=== PATIENT | female | born 1985 | race Caucasian/White ===

== ENCOUNTER 2019-04-13 08:34 | Day surgery (SDC) | payer MEDICAID ==
[2019-04-06 11:07] LABS: ABSOLUTE EOSINOPHILS # (AUTO) 0.1 10^3/uL (0.0-0.6); ABSOLUTE LYMPHOCYTES (AUTO) 2.2 10^3/uL (0.5-4.7); ABSOLUTE MONOCYTES (AUTO) 0.4 10^3/uL (0.1-1.4); ABSOLUTE NEUT (AUTO) 3.3 10^3/uL (1.7-8.2); BASOPHILS % (AUTO) 0.4 % (0-2); HEMATOCRIT 40.5 % (36.0-47.0); HEMOGLOBIN 13.8 g/dL (12.0-15.5); LYMPHOCYTES % (AUTO) 36.1 % (13-45); MEAN CORPUSCULAR HEMOGLOBIN 30.6 pg (27.0-33.4); MEAN CORPUSCULAR VOLUME 90 fl (80-97); MONOCYTES % (AUTO) 6.8 % (3-13); PLATELET COUNT 232 10^3/uL (150-450); RED CELL DISTRIBUTION WIDTH 14.2 % (11.5-14.0); SEGMENTED NEUTROPHILS % (AUTO) 54.7 % (42-78); TOTAL CELLS COUNTED % (AUTO) 100 %
[2019-04-06 11:52] LABS: ANION GAP 10 (5-19); BLOOD UREA NITROGEN 11 mg/dL (7-20); CARBON DIOXIDE 25 mmol/L (22-30); CHLORIDE 104 mmol/L (98-107); GLUCOSE 123 mg/dL (75-110); POTASSIUM 4.8 mmol/L (3.6-5.0)
[~2019-04-13 08:34] MED LIST: CEFAZOLIN SODIUM 2 GM in DEXTROSE 5%-WATER 100 ML IV PRN; DEXAMETHASONE SOD PHOSPHATE INJ 4 MG/1 ML VIAL ONE; FENTANYL CITRATE INJ/PF 100 MCG/2 ML AMPUL ONE; LACTATED RINGERS 1000 ML IV PRN; LIDOCAINE 0.5% INJ-PF (5 MG/ML) 50 ML SDV SUBCUT PRN; MIDAZOLAM 2 MG/2 ML INJ ONE; ONDANSETRON HCL INJ/PF 4 MG/2 ML SDV ONE; PROPOFOL INJ 200 MG/20 ML VIAL IV ONE
[2019-04-13] MEDS ORDERED: ONDANSETRON HCL INJ/PF 4 MG/2 ML SDV ONE (09:03)
[2019-04-13] MEDS ORDERED: FENTANYL CITRATE INJ/PF 100 MCG/2 ML AMPUL ONE (09:03)
[2019-04-13] MEDS ORDERED: MIDAZOLAM 2 MG/2 ML INJ ONE (09:03)
[2019-04-13] MEDS ORDERED: DEXAMETHASONE SOD PHOSPHATE INJ 4 MG/1 ML VIAL ONE (09:03)
[2019-04-13] MEDS ORDERED: PROPOFOL INJ 200 MG/20 ML VIAL IV ONE ×2 (09:04→13:57)
[2019-04-13] MEDS ORDERED: LIDOCAINE 1% INJ-PF (10 MG/ML) 30 ML SDV ONE (09:35)
[2019-04-13] MEDS ORDERED: DIPHENHYDRAMINE HCL 50 MG/ML VIAL IV PRN (11:31)
[2019-04-13] MEDS ORDERED: MEPERIDINE HCL/PF INJ 25 MG/1 ML DISP.SYRIN IV PRN (11:31)
[2019-04-13] MEDS ORDERED: MORPHINE SULFATE 10 MG/ML INJ IV PRN (11:31)
[2019-04-13] MEDS ORDERED: FENTANYL CITRATE INJ/PF 100 MCG/2 ML AMPUL IV PRN ×3 (11:31)
[2019-04-13] MEDS ORDERED: PROMETHAZINE HCL INJ 25 MG/1 ML VIAL IV PRN (11:31)
[2019-04-13] MEDS: BUPIVACAINE HCL 0.5 % INJ/PF 30 ML SDV ONE ×3 (11:37→12:45)
[2019-04-13] MEDS ORDERED: OXYCODONE-ACETAMINOPHEN 5-325 MG TABLET PO PRN (13:12)
--- NOTE | 2019-04-13 13:21 | Discharge Summary ---
Discharge Summary (SDC) - Discharge Final Diagnosis: Right ring finger malunion Date of Surgery: 04/13/19 Discharge Date: 04/13/19 Condition: Good Treatment or Instructions: Schedule Follow Up w/ Dr. Caleb Villegas @ [facility] to be seen in 10-14 days or as scheduled [place]: [place]: [place]: Ice and elevate Keep splint clean/dry/intact, do not remove. If your fingers become numb please unwrap the Dylon wrap but leave the splint in place, if the sensation does not return within 30 minutes please return to the emergency department. May begin finger range of motion attempting to make full fist. Please use ibuprofen (Motrin or Advil) 600-800 mg every 8 hours as needed for pain or fever DO NOT TAKE w/ TORADOL may use once TORADOL complete. You may also use acetaminophen (Tylenol) 1000 mg every 4-6 hours as needed for pain or fever. Please be aware that many medications contain acetaminophen, do not exceed a total of 1000 mg of acetaminophen every 6 hours. If ibuprofen and acetaminophen are not sufficient for your pain you may take the Percocet/[place]. Please be aware that the Percocet/[place] does contain Tylenol. Stool softener of choice when on pain medication. USE OF XLNY-SWP-VZHEOTB IBUPROFEN: Ibuprofen (Advil, Nuprin, Medipren, Motrin IB) is a medication for fever and pain control. In addition, it has anti- inflammatory effects which may be beneficial, especially in the treatment of injuries. It's best to take ibuprofen with food. Persons with ulcer disease or allergy to aspirin should notify their physician of this before taking ibuprofen. Ibuprofen can be given every four to six hours, for a total of four doses daily. Age Pain or fever dose Antiinflammatory dose 6-8 yr 200 mg (1 tab) 200 mg (1 tab) 9-11 yr 200 mg (1 tab) 200-400 mg (1-2 tab) 11-14 yr 200-400 mg (1-2 tab) 400 mg (2 tab) 15-adult 400 mg (2 tab) 600 mg (3 tab) ORAL NARCOTIC MEDICATION: You have been given a prescription for pain control. This medication is a narcotic. It's best taken with food, as nausea can result if taken on an empty stomach. Don't operate machinery or drive within six hours of taking this medication. Do not combine this medicine with alcohol, or with any medication which can cause sedation (such as cold tablets or sleeping pills) unless you get permission from the physician. Narcotics tend to cause constipation. If possible, drink plenty of fluids and eat a diet high in fiber and fruits. Please be aware that prescription narcotics also have the potential for abuse. People become addicted to these medications because of the general sense of wellbeing that they induce. This feeling along with a significant reduction in tension, anxiety, and aggression provides a stimulating seductive quality to these drugs. Once your pain is under control, we encourage you to discard your unused narcotics. Prescriptions: Oxycodone HCl/Acetaminophen [Percocet 5-325 mg Tablet] 1 tab PO Q6 PRN #25 tab PRN Reason: Discharge Diet: As Tolerated Respiratory Treatments at Home: Deep Breathing/Coughing Discharge Activity: No Lifting Over 10 Pounds, No Lifting/Push/Pulling Report the Following to Your Physician Immediately: Fever over 101 Degrees, Unusual Bleeding, Redness, Swelling, Warmth, Increased Soreness
--- NOTE | 2019-04-13 13:21 | Operative Report ---
Operative Report DATE OF SURGERY: 04/13/19 PREOPERATIVE DIAGNOSIS: Right ring finger proximal phalanx malunion POSTOPERATIVE DIAGNOSIS: Same plus FDP/ulnar slip of the FDS laceration zone II OPERATION: Corrective osteotomy right ring finger proximal phalanx with open reduction internal fixation. Repair FDP/ulnar slip of the FDS laceration zone II SURGEON: SHARMILA FREGOSO ANESTHESIA: GA COMPLICATIONS: Iatrogenic flexor tendon laceration ESTIMATED BLOOD LOSS: Minimal PROCEDURE: Indication for above procedure: 33-year-old female who sustained a fracture of her proximal phalanx at an outside facility and did not seek follow-up approximately 2 years ago. She subsequently developed rotated fracture of the proximal phalanx with significant digit overlap. Upon follow-up with me we discussed treatment options including observation versus operative intervention risk and benefits were explained patient verbalized understanding and consented for operative procedure. Procedure In Detail: Patient was seen and evaluated in the preoperative holding area. The RIGHT upper extremity was initialized and marked. Patient received 2g of Ancef IV for bacterial prophylaxis. Patient was taken back to the operative room where transferred to the operative table and placed under general anesthesia. Once they were adequately anesthetized a nonsterile tourniquet was placed on the upper extremity. A surgical team debriefing was performed ensuring all instrumentation was available, the surgical procedure was discussed with possible concerns reviewed. The upper extremity was prepped with chlorhexidine and alcohol and draped in a sterile fashion. A timeout was done identifying correct patient, procedure and extremity everyone in attendance agree with this and verbalized no concerns. The extremity was exsanguinated the tourniquet was inflated to 250 mmHg. Mid lateral skin incision was made along the ulnar border of the proximal phala nx. Blunt dissection was performed. Any peripheral veins were coagulated bipolar cautery. Neurovascular bundle was identified and protected. Proximal phalanx was then exposed. Section of the periosteum was incised and the extensor tendon elevated dorsally. The underlying flexor tendon was elevated. A 0.045 K wire was placed parallel to the joint line to determine appropriate trajectory of the osteotomy site. Once complete Homans were placed proximally and dorsally and sagittal saw was advanced. Once osteotomy was completed 0.5 cm longitudinal skin incision was made over the PIP joint dorsally. 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 Decision was then made to place headless compression screw across the transverse osteotomy site to provide interfragmentary compression and rotational control. A 2.5 mm x 30 mm Fixos headless compression screw was advanced. Once under the subchondral bone final C arm fluoroscopy was obtained demonstrating appropriate alignment of the phalanx with correction of patient's malrotation. With tenodesis patient had adequate rotation however patient had limited FDP flexion with tenodesis and thus exploration of the flexor tendon was performed which demonstrated disruption of the ulnar FDS and FDP tendon thus decision was made to proceed with flexor tendon repair. Skin incision was advanced proximally and distally with finger extensions. Proximal aspect of the A2 shawnee and distal aspect of the A1 shawnee were released. FDS tendon was identified and repaired with 5-0 Prolene modified Chavez suture. FDP was secured with a 22-gauge needle. Dorsal epitendinous suture with 5-0 Prolene was ran from radial to ulnar. Flexor tendon was repaired with 4-0 fiber loop utilizing cross cruciate 8 strand repair. Epitendinous stitch was then completed with 5-0 Prolene suture. With tenodesis and forearm squeeze there was full flexion of the digit without evidence of mal rotation. Additional C arm fluoroscopy was obtained confirming maintained alignment. Tourniquet was then deflated. Any peripheral bleeding was controlled with bipolar cautery until the wound was dry. Patient had normal skin turgor/peripheral perfusion. 20 cc of 0.5% bupivacaine without epinephrine was injected for pain control. Small defect within the extensor mechanism over the PIP joint was reapproximated with 3-0 Vicryl suture. Skin was closed with interrupted 4-0 nylon suture. Wound was dressed Xeroform 4 x 4's and a dorsal blocking splint with the wrist at 20 degrees extension MP joints at 60 degrees of flexion and IP joints in neutral position. Sponge counts, instrument counts, needle counts were correct. Patient was then awoken from anesthesia. Transferred from the operating room table to the operating room stretcher. There was no intraoperative complications patient tolerated procedure well stable to PACU. Postoperative plan: Patient will follow in the office in 2 weeks for recheck. We will obtain radiographs. Patient will begin zone II flexor tendon repair protocol as per [facility]'s protocol.
[2019-04-13] MEDS ORDERED: KETOROLAC TROMETHAMINE INJ/PF 30 MG/1 ML SDV ONE (14:00)
[2019-04-13] MEDS ORDERED: OXYCODONE-ACETAMINOPHEN 5-325 MG TABLET ONE (14:32)
--- NOTE | 2019-04-13 16:09 | RADIOLOGY REPORT (SQ) ---
EXAM DESCRIPTION: FINGER RIGHT; NO CHG FLUORO COMPLETED DATE/TIME: 04/13/2019 3:29 pm REASON FOR STUDY: ORIF RIGHT 4TH FINGER ASST WITH FLUORO IN OR S62.614P DISP FX OF PROX PHALANX OF R RNG FNGR, 7THP COMPARISON: None. FLUOROSCOPY TIME: 58 seconds. 2 images saved to PACS. TECHNIQUE: Intra-operative images acquired during surgical procedure to evaluate progress. NUMBER OF IMAGES: 2 images. LIMITATIONS: None. FINDINGS: Images of the finger acquired during the procedure. IMPRESSION: IMAGE(S) OBTAINED DURING PROCEDURE. COMMENT: Quality ID 145: Final reports for procedures using fluoroscopy that document radiation exp osure indices, or exposure time and number of fluorographic images (if radiation exposure indices are not available) Please consult full operative report of the attending physician for description of the procedure. TECHNICAL DOCUMENTATION: JOB ID: [id number] 2010 [employer]- All Rights Reserved Reading location - IP/workstation name: [email or web address]
--- NOTE | 2019-04-13 16:09 | RADIOLOGY REPORT (SQ) ---
EXAM DESCRIPTION: FINGER RIGHT; NO CHG FLUORO COMPLETED DATE/TIME: 04/13/2019 3:29 pm REASON FOR STUDY: ORIF RIGHT 4TH FINGER ASST WITH FLUORO IN OR S62.614P DISP FX OF PROX PHALANX OF R RNG FNGR, 7THP COMPARISON: None. FLUOROSCOPY TIME: 58 seconds. 2 images saved to PACS. TECHNIQUE: Intra-operative images acquired during surgical procedure to evaluate progress. NUMBER OF IMAGES: 2 images. LIMITATIONS: None. FINDINGS: Images of the finger acquired during the procedure. IMPRESSION: IMAGE(S) OBTAINED DURING PROCEDURE. COMMENT: Quality ID [id number]: Final reports for procedures using fluoroscopy that document radiation exp osure indices, or exposure time and number of fluorographic images (if radiation exposure indices are not available) Please consult full operative report of the attending physician for description of the procedure. TECHNICAL DOCUMENTATION: JOB ID: [id number] 2010 [employer]- All Rights Reserved Reading location - IP/workstation name: [email or web address]
[2019-04-13 16:44] VITALS: BP 150/89
== END 2019-04-13 15:30 | disposition home or self-care (01) ==
LOC: OROUT 08:34
PROVIDERS: ATTEND Orthopaedic Surgery
DX: S62.614P Displaced fracture of proximal phalanx of right ring finger, subsequent encounter for fracture with malunion (principal); S66.124D Laceration of flexor muscle, fascia and tendon of right ring finger at wrist and hand level, subsequent encounter; X58.XXXD Exposure to other specified factors, subsequent encounter; M79.644 Pain in right finger(s); Z79.899 Other long term (current) drug therapy; F17.210 Nicotine dependence, cigarettes, uncomplicated; E66.9 Obesity, unspecified; Z68.41 Body mass index [BMI] 40.0-44.9, adult
CPT/HCPCS: 36415 ×2; 84703; 85025; 80048; 73140; 01480; 26735; 26356; J2250; J3490; J0690; J1100; J3010; J1885; J2405; J7060; J2704